=== PATIENT | female | born 1990 | race Caucasian/White ===

== ENCOUNTER → 2017-11-07 | Outpatient (CLI) | payer OTHER ==
[2017-11-09 09:32] LABS: HEPATITIS B SURFACE ANTIGEN NEGATIVE (NEGATIVE)
[2017-11-09 09:46] LABS: HEPATITIS C VIRUS ABY INDEX < 0.0 INDEX (<0.8)
[2017-11-09 09:47] LABS: HIV 1&2 SCREEN CENTAUR NEGATIVE (NEGATIVE)
== END ==
LOC: M WUC 15:11
DX: Z11.3 Encounter for screening for infections with a predominantly sexual mode of transmission (principal)
CPT/HCPCS: 87340

== ENCOUNTER 2022-06-02 15:15 | Emergency (ER) | payer OTHER ==
[~2022-06-02] VITALS: Ht 149.9 cm; Wt 74.1 kg
[~2022-06-02 15:15] MED LIST: DOCU10CA PO; MOTR200T44 PO; PERCOCET PO
[2022-06-02] MEDS ORDERED: LEXA5TAB13 PO (16:05)
[2022-06-02] MEDS ORDERED: ACETAMINOPHEN TAB 650MG DOSE (2X325MG) PO ONE (20:40)
[2022-06-02] MEDS ORDERED: KETOROLAC 30 MG/ML 1ML VIAL IM ONE (20:40)
[2022-06-02] MEDS ORDERED: IMIT50TA PO (21:37)
[2022-06-02] MEDS ORDERED: KETO10TAB PO (21:37)
[2022-06-02] MEDS ORDERED: ONDA4TAB6 PO (21:37)
[2022-06-02 21:54] VITALS: BP 124/58
== END 2022-06-02 21:57 | disposition home or self-care (01) ==
LOC: M ED 15:15
DX: G43.909 Migraine, unspecified, not intractable, without status migrainosus (principal); E23.6 Other disorders of pituitary gland; F32.A Depression, unspecified; Z79.899 Other long term (current) drug therapy; Z98.890 Other specified postprocedural states